=== PATIENT | male | born 1985 | race Caucasian/White ===

== ENCOUNTER 2017-04-28 23:31 | Emergency (ER) | payer OTHER ==
[~2017-04-28] VITALS: Ht 170.2 cm; Wt 52.6 kg
[~2017-04-28 23:31] MED LIST: (None)15 G1 EXT; ALBU90OI INH; ASPI325 PO; ASPI500 PO; CLON.5 PO; Cleocin HCl300 MG PO; ESCI10 PO; Epipen0.3 MG/0.3 IM; FLONASE ALLERG9.9 ML NS; GABA100 PO; HYDACE5 PO; HYDHCL25 PO; Keflex500 MG PO; METPRE4DP; NAPR500 PO; Naprosyn375 MG PO; Norco 5-325 Ta1 EACH PO; OMEP10ER PO; OMEP40CA12 PO; PENVK500 PO; Pepcid20 MG PO; Pepcid40 MG PO; Prednisone20 MG PO; Prednisone50 MG PO; RXHYDACE PO; SPACE CHAMBER1 EACH INH; TRIA80TC; Ultram50 MG PO; Veetids 500500 MG PO
[2017-04-28] MEDS ORDERED: PROP10 PO (23:44)
[2017-04-28] MEDS ORDERED: OXYC5 PO (23:44)
[2017-04-28 23:58] LABS: BASOPHILS ABSOLUTE AUTO 0.03 K/mm3 (0.00-0.23); BASOPHILS PERCENT AUTO 1 % (0-2); EOSINOPHILS ABSOLUTE AUTO 0.12 K/mm3 (0.00-0.68); EOSINOPHILS PERCENT AUTO 2 % (0-6); Hematocrit 49.2 % (37.0-53.0); Hemoglobin 16.8 g/dL (13.5-17.5); IMMATURE GRAN PERCENT AUTO 0 % (0-1); LYMPHOCYTES ABSOLUTE AUTO 1.86 K/mm3 (0.84-5.20); LYMPHOCYTES PERCENT AUTO 29 % (21-46); MONOCYTES ABSOLUTE AUTO 0.53 K/mm3 (0.16-1.47); MONOCYTES PERCENT AUTO 8 % (4-13); Mean Corpuscular HGB 29.5 pg (26.0-34.0); Mean Corpuscular HGB Conc 34.1 g/dL (31.5-36.5); Mean Corpuscular Volume 86 fL (80-100); Mean Platelet Volume 10.2 fL (9.1-12.4); NEUTROPHILS ABSOLUTE AUTO 3.89 K/mm3 (1.96-9.15); NEUTROPHILS PERCENT AUTO 61 % (41-73); Platelet Count 246 K/mm3 (150-400); RDW Coefficient Variation 11.7 % (11.7-14.2); RDW Standard Deviation 36.8 fL (35.1-46.3); White Blood Cell Count 6.43 K/mm3 (4.00-11.30)
[2017-04-29 00:18] LABS: Alanine Aminotransfer (ALT/SGP 21 U/L (12-78); Albumin, Blood 4.6 g/dL (3.4-5.0); Albumin/Globulin Ratio 1.2 (0.8-1.8); Alk Phos 76 U/L (50-136); Anion Gap 8 mmol/L (6-16); Aspartate Aminotrans (AST/SGOT 18 U/L (12-37); Bilirubin, Total 0.4 mg/dL (0.1-1.0); Blood Urea Nitrogen 13 mg/dL (8-24); Bun/Creatinine Ratio 21.5 (12.0-20.0); CO2, Blood 29 mmol/L (21-32); Calcium, Blood 9.2 mg/dL (8.5-10.1); Chloride, Blood 104 mmol/L (98-108); Creatinine, Blood 0.61 mg/dL (0.60-1.20); Glomerular Filtration Rate >60 (60-); Glucose, Blood 94 mg/dL (70-99); Potassium, Blood 3.7 mmol/L (3.5-5.5); Sodium, Blood 141 mmol/L (136-145); Total Protein, Blood 8.6 g/dL (6.4-8.2); Troponin I <0.015 ng/mL (0.000-0.040)
[2017-04-29] MEDS ORDERED: Guaifenesin-Co118 ML PO (01:05)
[2017-10-30] MEDS ORDERED: [UNRECOGNIZED DRUG - OTHER] PO (14:08)
[2017-10-30] MEDS ORDERED: EPIPEN 2-P0.3 MG/0.3 IM (14:08)
[2017-10-30] MEDS ORDERED: BOTOX COSMETIC100 U (14:08)
[2017-10-30] MEDS ORDERED: ALBU90OI INH (14:09)
[2017-10-30] MEDS ORDERED: CHOL10002 PO (14:09)
[2017-10-30] MEDS ORDERED: QVAR REDIHALE10.6 G1 INH (14:10)
[2017-10-30] MEDS ORDERED: MONT10T PO (14:11)
[2017-10-30] MEDS ORDERED: DULO30 PO (14:11)
== END 2017-04-29 01:26 | disposition home or self-care (01) ==
LOC: ER 23:31
PROVIDERS: Emergency Medicine
DX: J11.1 Influenza due to unidentified influenza virus with other respiratory manifestations (principal); F41.9 Anxiety disorder, unspecified; Z91.030 Bee allergy status; Z91.048 Other nonmedicinal substance allergy status; Z79.899 Other long term (current) drug therapy
CPT/HCPCS: 36415; 71046; 80053; 81000; 84484; 85025; 93005; 93010; 99283

== ENCOUNTER 2017-05-24 20:01 | Emergency (ER) | payer OTHER ==
[~2017-05-24] VITALS: Ht 170.2 cm; Wt 56.2 kg
[~2017-05-24 20:01] MED LIST changes: +Guaifenesin-Co118 ML PO; +OXYC5 PO; +PROP10 PO
[2017-05-24] MEDS ORDERED: QVAR INH (20:10)
[2017-05-24] MEDS ORDERED: Tamiflu75 MG PO (20:37)
[2017-10-30] MEDS ORDERED: BOTOX COSMETIC100 U (14:08)
[2017-10-30] MEDS ORDERED: [UNRECOGNIZED DRUG - OTHER] PO (14:08)
[2017-10-30] MEDS ORDERED: EPIPEN 2-P0.3 MG/0.3 IM (14:08)
[2017-10-30] MEDS ORDERED: CHOL10002 PO (14:09)
[2017-10-30] MEDS ORDERED: ALBU90OI INH (14:09)
[2017-10-30] MEDS ORDERED: QVAR REDIHALE10.6 G1 INH (14:10)
[2017-10-30] MEDS ORDERED: MONT10T PO (14:11)
[2017-10-30] MEDS ORDERED: DULO30 PO (14:11)
== END 2017-05-24 20:43 | disposition home or self-care (01) ==
LOC: ER 20:01
DX: J11.1 Influenza due to unidentified influenza virus with other respiratory manifestations (principal); J45.909 Unspecified asthma, uncomplicated; Z91.048 Other nonmedicinal substance allergy status; Z91.038 Other insect allergy status; Z79.899 Other long term (current) drug therapy
CPT/HCPCS: 99282

== ENCOUNTER → 2017-05-25 | Outpatient (CLI) | payer OTHER ==
[~2017-05-25] MED LIST changes: +BOTOX; +BOTOX COSMETIC100 U; +CHOL10002 PO; +DULO30 PO; +EPIPEN 2-P0.3 MG/0.3 IM; +METO10 PO; +MONT10T PO; +QVAR INH; +QVAR REDIHALE10.6 G1 INH; +Tamiflu75 MG PO; +Triamcinolone A15 GM TOP; +Zofran Odt4 MG PO; +[UNRECOGNIZED DRUG - OTHER] PO
[2017-05-25 15:02] LABS: BASOPHILS ABSOLUTE AUTO 0.04 K/mm3 (0.00-0.23); BASOPHILS PERCENT AUTO 1 % (0-2); EOSINOPHILS ABSOLUTE AUTO 0.02 K/mm3 (0.00-0.68); EOSINOPHILS PERCENT AUTO 1 % (0-6); Hematocrit 43.8 % (37.0-53.0); IMMATURE GRAN ABSOLUTE AUTO 0.02 K/mm3 (0.00-0.10); IMMATURE GRAN PERCENT AUTO 1 % (0-1); LYMPHOCYTES ABSOLUTE AUTO 0.27 K/mm3 (0.84-5.20); LYMPHOCYTES PERCENT AUTO 6 % (21-46); MONOCYTES ABSOLUTE AUTO 0.73 K/mm3 (0.16-1.47); MONOCYTES PERCENT AUTO 16 % (4-13); Mean Corpuscular HGB 30.2 pg (26.0-34.0); Mean Corpuscular HGB Conc 34.2 g/dL (31.5-36.5); Mean Corpuscular Volume 88 fL (80-100); Mean Platelet Volume 10.6 fL (9.1-12.4); NEUTROPHILS ABSOLUTE AUTO 3.36 K/mm3 (1.96-9.15); NEUTROPHILS PERCENT AUTO 76 % (41-73); Platelet Count 156 K/mm3 (150-400); RDW Coefficient Variation 12.1 % (11.7-14.2); RDW Standard Deviation 38.9 fL (35.1-46.3); Red Blood Cell Count 4.96 M/mm3 (4.30-5.90); White Blood Cell Count 4.44 K/mm3 (4.00-11.30)
[2017-05-25 15:08] LABS: Anion Gap 11 mmol/L (6-16); Blood Urea Nitrogen 10 mg/dL (8-24); Bun/Creatinine Ratio 12.5 (12.0-20.0); CO2, Blood 26 mmol/L (21-32); Calcium, Blood 9.2 mg/dL (8.5-10.1); Chloride, Blood 105 mmol/L (98-108); Glomerular Filtration Rate >60 (60-); Glucose, Blood 91 mg/dL (70-99); Potassium, Blood 3.3 mmol/L (3.5-5.5); Sodium, Blood 142 mmol/L (136-145)
== END ==
LOC: LAB EV 14:58
PROVIDERS: Physician Assistant Surgical
DX: R00.2 Palpitations (principal)
CPT/HCPCS: 80048; 85025

== ENCOUNTER 2017-05-26 22:53 | Emergency (ER) | payer OTHER ==
[~2017-05-26] VITALS: Ht 170.2 cm; Wt 56.2 kg
[~2017-05-26 22:53] MED LIST changes: -BOTOX; -BOTOX COSMETIC100 U; -CHOL10002 PO; -DULO30 PO; -EPIPEN 2-P0.3 MG/0.3 IM; -METO10 PO; -MONT10T PO; -QVAR REDIHALE10.6 G1 INH; -Triamcinolone A15 GM TOP; -Zofran Odt4 MG PO; -[UNRECOGNIZED DRUG - OTHER] PO
[2017-10-30] MEDS ORDERED: BOTOX COSMETIC100 U (14:08)
[2017-10-30] MEDS ORDERED: EPIPEN 2-P0.3 MG/0.3 IM (14:08)
[2017-10-30] MEDS ORDERED: [UNRECOGNIZED DRUG - OTHER] PO (14:08)
[2017-10-30] MEDS ORDERED: ALBU90OI INH (14:09)
[2017-10-30] MEDS ORDERED: CHOL10002 PO (14:09)
[2017-10-30] MEDS ORDERED: QVAR REDIHALE10.6 G1 INH (14:10)
[2017-10-30] MEDS ORDERED: DULO30 PO (14:11)
[2017-10-30] MEDS ORDERED: MONT10T PO (14:11)
== END 2017-05-27 02:30 | disposition home or self-care (01) ==
LOC: ER 22:53
DX: B34.9 Viral infection, unspecified (principal); Z91.038 Other insect allergy status; Z91.048 Other nonmedicinal substance allergy status
CPT/HCPCS: 87081; 87430; 93005; 93010; 99283

== ENCOUNTER → 2017-06-14 | Outpatient (CLI) | payer OTHER ==
[~2017-06-14] MED LIST changes: +BOTOX; +BOTOX COSMETIC100 U; +CHOL10002 PO; +DULO30 PO; +EPIPEN 2-P0.3 MG/0.3 IM; +METO10 PO; +MONT10T PO; +QVAR REDIHALE10.6 G1 INH; +Triamcinolone A15 GM TOP; +Zofran Odt4 MG PO; +[UNRECOGNIZED DRUG - OTHER] PO
[2017-06-14 19:26] LABS: Specimen Source URINE
[2017-06-14 19:34] LABS: BASOPHILS ABSOLUTE AUTO 0.05 K/mm3 (0.00-0.23); BASOPHILS PERCENT AUTO 1 % (0-2); EOSINOPHILS ABSOLUTE AUTO 0.09 K/mm3 (0.00-0.68); EOSINOPHILS PERCENT AUTO 2 % (0-6); Hematocrit 45.5 % (37.0-53.0); Hemoglobin 15.3 g/dL (13.5-17.5); IMMATURE GRAN ABSOLUTE AUTO 0.01 K/mm3 (0.00-0.10); IMMATURE GRAN PERCENT AUTO 0 % (0-1); LYMPHOCYTES PERCENT AUTO 26 % (21-46); MONOCYTES ABSOLUTE AUTO 0.53 K/mm3 (0.16-1.47); MONOCYTES PERCENT AUTO 9 % (4-13); Mean Corpuscular HGB 29.8 pg (26.0-34.0); Mean Corpuscular HGB Conc 33.6 g/dL (31.5-36.5); Mean Corpuscular Volume 89 fL (80-100); Mean Platelet Volume 10.9 fL (9.1-12.4); NEUTROPHILS ABSOLUTE AUTO 3.55 K/mm3 (1.96-9.15); NEUTROPHILS PERCENT AUTO 62 % (41-73); Platelet Count 238 K/mm3 (150-400); RDW Coefficient Variation 12.1 % (11.7-14.2); RDW Standard Deviation 39.1 fL (35.1-46.3); Red Blood Cell Count 5.13 M/mm3 (4.30-5.90); White Blood Cell Count 5.73 K/mm3 (4.00-11.30)
[2017-06-14 19:40] LABS: Anion Gap 7 mmol/L (6-16); Blood Urea Nitrogen 5 mg/dL (8-24); Bun/Creatinine Ratio 7.5 (12.0-20.0); CO2, Blood 31 mmol/L (21-32); Calcium, Blood 9.6 mg/dL (8.5-10.1); Chloride, Blood 104 mmol/L (98-108); Creatinine, Blood 0.67 mg/dL (0.60-1.20); Glomerular Filtration Rate >60 (60-); Glucose, Blood 88 mg/dL (70-99); Potassium, Blood 3.7 mmol/L (3.5-5.5); Sodium, Blood 142 mmol/L (136-145)
[2017-06-15 23:35] LABS: Source Urine
[2017-06-17 10:44] LABS: HCV Non Reactive (NR)
== END | disposition home or self-care (01) ==
LOC: LAB EV 19:24
PROVIDERS: Physician Assistant Surgical
DX: R53.83 Other fatigue (principal); Z72.51 High risk heterosexual behavior
CPT/HCPCS: 80048; 80074; 85025; 86592; 87389; 87491; 87591

== ENCOUNTER → 2017-07-04 | Outpatient (CLI) | payer OTHER ==
[~2017-07-04] MED LIST changes: -BOTOX; -BOTOX COSMETIC100 U; -CHOL10002 PO; -DULO30 PO; -EPIPEN 2-P0.3 MG/0.3 IM; -METO10 PO; -MONT10T PO; -QVAR REDIHALE10.6 G1 INH; -Triamcinolone A15 GM TOP; -Zofran Odt4 MG PO; -[UNRECOGNIZED DRUG - OTHER] PO
== END | disposition home or self-care (01) ==
LOC: LAB EV 16:42 → LAB SHORT 16:42
DX: R07.0 Pain in throat (principal)
CPT/HCPCS: 87070

== ENCOUNTER 2017-07-10 20:13 | Emergency (ER) | payer OTHER ==
[~2017-07-10] VITALS: Ht 170.2 cm; Wt 56.7 kg
[2017-07-10 20:41] LABS: BASOPHILS ABSOLUTE AUTO 0.04 K/mm3 (0.00-0.23); BASOPHILS PERCENT AUTO 1 % (0-2); EOSINOPHILS ABSOLUTE AUTO 0.11 K/mm3 (0.00-0.68); EOSINOPHILS PERCENT AUTO 2 % (0-6); Hematocrit 46.7 % (37.0-53.0); Hemoglobin 15.8 g/dL (13.5-17.5); IMMATURE GRAN PERCENT AUTO 0 % (0-1); LYMPHOCYTES ABSOLUTE AUTO 1.79 K/mm3 (0.84-5.20); LYMPHOCYTES PERCENT AUTO 28 % (21-46); MONOCYTES ABSOLUTE AUTO 0.51 K/mm3 (0.16-1.47); MONOCYTES PERCENT AUTO 8 % (4-13); Mean Corpuscular HGB 29.9 pg (26.0-34.0); Mean Corpuscular HGB Conc 33.8 g/dL (31.5-36.5); Mean Corpuscular Volume 88 fL (80-100); Mean Platelet Volume 10.2 fL (9.1-12.4); NEUTROPHILS ABSOLUTE AUTO 3.89 K/mm3 (1.96-9.15); NEUTROPHILS PERCENT AUTO 62 % (41-73); Platelet Count 244 K/mm3 (150-400); RDW Coefficient Variation 12.4 % (11.7-14.2); RDW Standard Deviation 39.8 fL (35.1-46.3); Red Blood Cell Count 5.29 M/mm3 (4.30-5.90); White Blood Cell Count 6.34 K/mm3 (4.00-11.30)
[2017-07-10 21:04] LABS: Alanine Aminotransfer (ALT/SGP 73 U/L (12-78); Albumin, Blood 4.9 g/dL (3.4-5.0); Albumin/Globulin Ratio 1.4 (0.8-1.8); Alk Phos 72 U/L (50-136); Anion Gap 6 mmol/L (6-16); Aspartate Aminotrans (AST/SGOT 36 U/L (12-37); Bilirubin, Total 0.4 mg/dL (0.1-1.0); Blood Urea Nitrogen 18 mg/dL (8-24); Bun/Creatinine Ratio 27.4 (12.0-20.0); CO2, Blood 26 mmol/L (21-32); Calcium, Blood 9.5 mg/dL (8.5-10.1); Chloride, Blood 106 mmol/L (98-108); Creatinine, Blood 0.66 mg/dL (0.60-1.20); Globulin, Blood 3.4 g/dL (2.2-4.0); Glomerular Filtration Rate >60 (60-); Glucose, Blood 110 mg/dL (70-99); Magnesium, Blood 1.8 mg/dL (1.6-2.4); Potassium, Blood 3.6 mmol/L (3.5-5.5); Sodium, Blood 138 mmol/L (136-145); Total Protein, Blood 8.3 g/dL (6.4-8.2); Troponin I <0.015 ng/mL (0.000-0.040)
== END 2017-07-10 22:46 | disposition home or self-care (01) ==
LOC: ER 20:13
PROVIDERS: Emergency Medicine
DX: R00.2 Palpitations (principal); Z91.030 Bee allergy status; Z88.6 Allergy status to analgesic agent; Z88.8 Allergy status to other drugs, medicaments and biological substances; Z79.899 Other long term (current) drug therapy; G43.909 Migraine, unspecified, not intractable, without status migrainosus
CPT/HCPCS: 36415; 71046; 80053; 83735; 84443; 84484; 85025; 93005; 93010; 99283; J7030

== ENCOUNTER 2017-11-25 22:25 | Emergency (ER) | payer OTHER ==
[~2017-11-25] VITALS: Ht 170.2 cm; Wt 53.5 kg
[~2017-11-25 22:25] MED LIST changes: +BOTOX COSMETIC100 U; +CHOL10002 PO; +DULO30 PO; +EPIPEN 2-P0.3 MG/0.3 IM; +MONT10T PO; +QVAR REDIHALE10.6 G1 INH; +[UNRECOGNIZED DRUG - OTHER] PO
[2017-11-26] MEDS ORDERED: Zofran Odt4 MG PO (01:29)
[2017-11-26] MEDS ORDERED: METO10 PO (01:29)
[2017-11-26] MEDS ORDERED: Triamcinolone A15 GM TOP (01:37)
== END 2017-11-26 01:53 | disposition home or self-care (01) ==
LOC: ER 22:25
DX: R11.2 Nausea with vomiting, unspecified (principal); L23.7 Allergic contact dermatitis due to plants, except food; Z91.030 Bee allergy status; Z88.6 Allergy status to analgesic agent; Z88.8 Allergy status to other drugs, medicaments and biological substances; Z79.899 Other long term (current) drug therapy; G43.909 Migraine, unspecified, not intractable, without status migrainosus; F41.9 Anxiety disorder, unspecified
CPT/HCPCS: 99283

== ENCOUNTER 2018-03-21 04:01 | Emergency (ER) | payer OTHER ==
[~2018-03-21] VITALS: Ht 175.3 cm; Wt 52.2 kg
[~2018-03-21 04:01] MED LIST changes: +METO10 PO; +Triamcinolone A15 GM TOP; +Zofran Odt4 MG PO
[2018-03-21] MEDS ORDERED: BOTOX (04:41)
[2018-03-21 05:38] LABS: Anion Gap 7 mmol/L (6-16); Blood Urea Nitrogen 12 mg/dL (8-24); Bun/Creatinine Ratio 17.8 (12.0-20.0); CO2, Blood 27 mmol/L (21-32); Calcium, Blood 8.5 mg/dL (8.5-10.1); Chloride, Blood 109 mmol/L (98-108); Creatinine, Blood 0.67 mg/dL (0.60-1.20); Glomerular Filtration Rate >60 (60-); Glucose, Blood 99 mg/dL (70-99); Sodium, Blood 143 mmol/L (136-145)
== END 2018-03-21 05:53 | disposition home or self-care (01) ==
LOC: ER 04:01
PROVIDERS: Emergency Medicine
DX: R00.2 Palpitations (principal); F41.9 Anxiety disorder, unspecified; Z88.8 Allergy status to other drugs, medicaments and biological substances; Z91.030 Bee allergy status; Z88.5 Allergy status to narcotic agent; Z79.899 Other long term (current) drug therapy
CPT/HCPCS: 80048; 93005; 93010; 99284-25

== ENCOUNTER 2018-05-29 09:18 | Emergency (ER) | payer OTHER | END 2018-05-29 09:40 | disposition left against medical advice (07) | LOC: ER 09:18 | DX: Z53.21 Procedure and treatment not carried out due to patient leaving prior to being seen by health care provider (principal) ==

== ENCOUNTER → 2018-05-29 | Outpatient (CLI) | payer OTHER ==
[~2018-05-29] MED LIST changes: +BOTOX; +CYAN500 PO; +QVAR REDIHALE10.6 G1 PO
[2018-05-29 11:09] LABS: Alanine Aminotransfer (ALT/SGP 21 U/L (12-78); Albumin, Blood 4.5 g/dL (3.4-5.0); Albumin/Globulin Ratio 1.5 (0.8-1.8); Alk Phos 67 U/L (40-126); Anion Gap 11 mmol/L (6-16); Aspartate Aminotrans (AST/SGOT 24 U/L (12-37); Bilirubin, Total 0.5 mg/dL (0.1-1.0); Blood Urea Nitrogen 14 mg/dL (8-24); Bun/Creatinine Ratio 18.4 (12.0-20.0); CO2, Blood 29 mmol/L (21-32); Calcium, Blood 8.8 mg/dL (8.5-10.1); Chloride, Blood 101 mmol/L (98-108); Creatinine, Blood 0.76 mg/dL (0.60-1.20); Glomerular Filtration Rate >60 (60-); Glucose, Blood 94 mg/dL (70-99); Potassium, Blood 3.4 mmol/L (3.5-5.5); Sodium, Blood 141 mmol/L (136-145); Total Protein, Blood 7.5 g/dL (6.4-8.2)
== END | disposition home or self-care (01) ==
LOC: LAB EV 10:48 → LAB SHORT 10:48
PROVIDERS: Physician Assistant
DX: R10.9 Unspecified abdominal pain (principal)
CPT/HCPCS: 80053

== ENCOUNTER → 2018-06-04 | Outpatient (CLI) | payer OTHER ==
[~2018-06-04] MED LIST changes: +ALBU90OI6 INH; +EPINEPHRIN0.15 MG/01 IJ
[2018-06-04 16:17] LABS: Source, Urine Clean Catch
[2018-06-04 17:45] LABS: White Blood Cells, Urine Not Seen /hpf (0-5)
[2018-06-04 17:46] LABS: Bacteria Rare /hpf; Red Blood Cells, Urine 0-2 /hpf (0-2); Squamous Epithelial Cells Not Seen /hpf (Few)
== END | disposition home or self-care (01) ==
LOC: LAB UCHC 16:14 → LAB SHORT 16:14
PROVIDERS: Nurse Practitioner Adult Health
DX: R31.21 Asymptomatic microscopic hematuria (principal)
CPT/HCPCS: 81015; 87086

== ENCOUNTER 2018-06-12 00:44 | Emergency (ER) | payer OTHER ==
[~2018-06-12] VITALS: Ht 170.2 cm; Wt 54.4 kg
[~2018-06-12 00:44] MED LIST changes: -ALBU90OI6 INH; -EPINEPHRIN0.15 MG/01 IJ
[2018-06-12] MEDS ORDERED: EPINEPHRIN0.15 MG/01 IJ (01:34)
[2018-06-12] MEDS ORDERED: ALBU90OI6 INH (01:34)
[2018-06-12 03:09] LABS: Influenza A Negative (NEGATIVE); Influenza B Negative (NEGATIVE)
== END 2018-06-12 04:30 | disposition home or self-care (01) ==
LOC: ER 00:44
PROVIDERS: Emergency Medicine
DX: J06.9 Acute upper respiratory infection, unspecified (principal)
CPT/HCPCS: 36415; 87804; 96361; 96374; 96375; 99283-25; J2405; J3010; J7030

== ENCOUNTER → 2020-12-14 | Outpatient (CLI) | payer OTHER ==
[~2020-12-14] MED LIST changes: +ALBU90OI6 INH; +EPINEPHRIN0.15 MG/01 IJ
[2020-12-16 20:06] LABS: Adenovirus F 40/41 Not Detected (NOT DETECT); Astrovirus Not Detected (NOT DETECT); Campylobacter Sp Not Detected (NOT DETECT); Cryptosporidium Not Detected (NOT DETECT); Cyclospora Cayetanensis Not Detected (NOT DETECT); E. Coli O157 Not Detected (NOT DETECT); Entamoeba Histolytica Not Detected (NOT DETECT); Enteroaggregative E. coli-EAEC Not Detected (NOT DETECT); Enteropathogenic E. coli-EPEC Detected (NOT DETECT); Enterotoxigenic E. coli-ETEC Not Detected (NOT DETECT); Giardia Lamblia Not Detected (NOT DETECT); Plesiomonas Shigelloides Not Detected (NOT DETECT); Salmonella Sp Not Detected (NOT DETECT); Shiga Toxin-prod E. coli-STEC Not Detected (NOT DETECT); Shigella/Enteroin E. coli-EIEC Not Detected (NOT DETECT); Vibrio Cholerae Not Detected (NOT DETECT); Vibrio Sp Not Detected (NOT DETECT); Yersinia Enterocolitica Not Detected (NOT DETECT)
[2020-12-16 20:07] LABS: Norovirus GI/GII Not Detected (NOT DETECT); Rotavirus A Not Detected (NOT DETECT); Sapovirus Not Detected (NOT DETECT)
== END | disposition home or self-care (01) ==
LOC: LAB 14:00 → LAB SHORT 14:00
PROVIDERS: Nurse Practitioner Family
DX: K21.00 Gastro-esophageal reflux disease with esophagitis, without bleeding (principal); R10.13 Epigastric pain; R11.0 Nausea
CPT/HCPCS: 0097U; 87338

== ENCOUNTER → 2021-12-07 | Outpatient (CLI) | payer OTHER ==
[2021-12-07 12:24] LABS: BASOPHILS ABSOLUTE AUTO 0.05 K/mm3 (0.00-0.23); BASOPHILS PERCENT AUTO 1 % (0-2); EOSINOPHILS ABSOLUTE AUTO 0.09 K/mm3 (0.00-0.68); EOSINOPHILS PERCENT AUTO 2 % (0-6); Hematocrit 47.8 % (37.0-53.0); Hemoglobin 16.8 g/dL (13.5-17.5); IMMATURE GRAN ABSOLUTE AUTO 0.01 K/mm3 (0.00-0.10); IMMATURE GRAN PERCENT AUTO 0 % (0-1); LYMPHOCYTES ABSOLUTE AUTO 1.35 K/mm3 (0.84-5.20); LYMPHOCYTES PERCENT AUTO 23 % (21-46); MONOCYTES ABSOLUTE AUTO 0.46 K/mm3 (0.16-1.47); MONOCYTES PERCENT AUTO 8 % (4-13); Mean Corpuscular HGB 30.4 pg (26.0-34.0); Mean Corpuscular HGB Conc 35.1 g/dL (31.5-36.5); Mean Corpuscular Volume 87 fL (80-100); Mean Platelet Volume 10.3 fL (9.1-12.4); NEUTROPHILS ABSOLUTE AUTO 3.95 K/mm3 (1.96-9.15); NEUTROPHILS PERCENT AUTO 67 % (41-73); Platelet Count 240 K/mm3 (150-400); RDW Coefficient Variation 11.8 % (11.7-14.2); RDW Standard Deviation 37.2 fL (35.1-46.3); Red Blood Cell Count 5.52 M/mm3 (4.30-5.90); White Blood Cell Count 5.91 K/mm3 (4.00-11.30)
[2021-12-07 12:35] LABS: Albumin, Blood 4.4 g/dL (3.4-5.0); Albumin/Globulin Ratio 1.3 (0.8-1.8); Bilirubin, Total 0.6 mg/dL (0.1-1.0); Bun/Creatinine Ratio 15.8 (12.0-20.0); Calcium, Blood 8.7 mg/dL (8.5-10.1); Creatinine, Blood 0.76 mg/dL (0.60-1.20); Globulin, Blood 3.3 g/dL (2.2-4.0); Potassium, Blood 3.5 mmol/L (3.5-5.5); Total Protein, Blood 7.7 g/dL (6.4-8.2)
== END | disposition home or self-care (01) ==
LOC: LAB SHORT 12:19
PROVIDERS: Physician Assistant
DX: R07.9 Chest pain, unspecified (principal)
CPT/HCPCS: 80053; 84484; 85025

== ENCOUNTER → 2021-12-11 | Outpatient (CLI) | payer OTHER ==
[2021-12-11 17:49] LABS: Adenovirus F 40/41 Not Detected (NOT DETECT); Astrovirus Not Detected (NOT DETECT); Campylobacter Sp Not Detected (NOT DETECT); Cryptosporidium Not Detected (NOT DETECT); Cyclospora Cayetanensis Not Detected (NOT DETECT); E. Coli O157 Not Detected (NOT DETECT); Entamoeba Histolytica Not Detected (NOT DETECT); Enteroaggregative E. coli-EAEC Not Detected (NOT DETECT); Enteropathogenic E. coli-EPEC Not Detected (NOT DETECT); Enterotoxigenic E. coli-ETEC Not Detected (NOT DETECT); Giardia Lamblia Not Detected (NOT DETECT); Norovirus GI/GII Not Detected (NOT DETECT); Plesiomonas Shigelloides Not Detected (NOT DETECT); Rotavirus A Not Detected (NOT DETECT); Salmonella Sp Not Detected (NOT DETECT); Shiga Toxin-prod E. coli-STEC Not Detected (NOT DETECT); Shigella/Enteroin E. coli-EIEC Not Detected (NOT DETECT); Vibrio Cholerae Not Detected (NOT DETECT); Vibrio Sp Not Detected (NOT DETECT); Yersinia Enterocolitica Not Detected (NOT DETECT)
[2021-12-11 17:50] LABS: Sapovirus Not Detected (NOT DETECT)
== END | disposition home or self-care (01) ==
LOC: LAB SHORT 13:34 → LAB 13:34
PROVIDERS: Nurse Practitioner Family
DX: R11.2 Nausea with vomiting, unspecified (principal)
CPT/HCPCS: 87507

== ENCOUNTER 2022-10-07 15:37 | Emergency (ER) | payer OTHER ==
[~2022-10-07] VITALS: Ht 170.2 cm; Wt 59.0 kg
[2022-10-07] MEDS ORDERED: ZOLOFT25 MG PO (15:51)
[2022-10-07] MEDS ORDERED: CELEXA10 MG PO (15:51)
[2022-10-07] MEDS ORDERED: Amitriptyline H10 MG PO (15:51)
[2022-10-07] MEDS ORDERED: DIAZ5 PO (16:34)
[2022-10-07] MEDS ORDERED: Omeprazole20 M1 PO (16:34)
[2022-10-07 16:40] VITALS: BP 118/82
== END 2022-10-07 16:44 | disposition home or self-care (01) ==
LOC: ER 15:37
DX: K29.70 Gastritis, unspecified, without bleeding (principal); F41.0 Panic disorder [episodic paroxysmal anxiety]; G43.909 Migraine, unspecified, not intractable, without status migrainosus; Z91.09 Other allergy status, other than to drugs and biological substances; Z88.8 Allergy status to other drugs, medicaments and biological substances
CPT/HCPCS: 99283; A9270

== ENCOUNTER 2022-10-13 21:36 | Emergency (ER) | payer OTHER ==
[~2022-10-13] VITALS: Ht 170.2 cm; Wt 59.0 kg
[~2022-10-13 21:36] MED LIST changes: +Amitriptyline H10 MG PO; +CELEXA10 MG PO; +DIAZ5 PO; +Omeprazole20 M1 PO; +ZOLOFT25 MG PO
[2022-10-13 21:41] VITALS: BP 142/91
[2022-10-13] MEDS ORDERED: HYDHCL25 PO (23:35)
== END 2022-10-13 23:49 | disposition home or self-care (01) ==
LOC: ER 21:36
DX: R51.9 Headache, unspecified (principal); F41.9 Anxiety disorder, unspecified; Z79.899 Other long term (current) drug therapy; Z88.8 Allergy status to other drugs, medicaments and biological substances
CPT/HCPCS: 96374; 96375; 99283-25; J1200; J1885; J2405; J7030

== ENCOUNTER 2023-03-21 15:35 | Emergency (ER) | payer OTHER ==
[~2023-03-21] VITALS: Ht 170.2 cm; Wt 15.9 kg
[2023-03-21 15:45] VITALS: BP 133/90
[2023-03-21 16:44] LABS: Influenza A, PCR NEGATIVE (NEGATIVE); Influenza B, PCR NEGATIVE (NEGATIVE); Resp Syncytial Virus, PCR NEGATIVE (NEGATIVE)
[2023-03-21 17:52] LABS: SARS-Cov-2 (COVID-19) PCR, MMC POSITIVE (NEGATIVE)
== END 2023-03-21 18:21 | disposition home or self-care (01) ==
LOC: ER 15:35
PROVIDERS: Physician Assistant
DX: U07.1 COVID-19 (principal); G43.909 Migraine, unspecified, not intractable, without status migrainosus; I34.1 Nonrheumatic mitral (valve) prolapse; Z79.899 Other long term (current) drug therapy; Z88.8 Allergy status to other drugs, medicaments and biological substances; Z91.030 Bee allergy status; Z91.048 Other nonmedicinal substance allergy status
CPT/HCPCS: 0241U; 86308; 87081; 87430; 96374; 99282; J1885

== ENCOUNTER 2023-05-09 01:22 | Emergency (ER) | payer OTHER ==
[~2023-05-09] VITALS: Ht 170.2 cm; Wt 61.2 kg
[2023-05-09] MEDS ORDERED: GABA400 PO (01:52)
[2023-05-09 02:14] LABS: BASOPHILS ABSOLUTE AUTO 0.01 K/mm3 (0.00-0.23); BASOPHILS PERCENT AUTO 0 % (0-2); EOSINOPHILS PERCENT AUTO 0 % (0-6); Hematocrit 47.1 % (37.0-53.0); Hemoglobin 16.3 g/dL (13.5-17.5); IMMATURE GRAN ABSOLUTE AUTO 0.03 K/mm3 (0.00-0.10); IMMATURE GRAN PERCENT AUTO 0 % (0-1); LYMPHOCYTES ABSOLUTE AUTO 0.53 K/mm3 (0.84-5.20); LYMPHOCYTES PERCENT AUTO 5 % (21-46); MONOCYTES ABSOLUTE AUTO 0.02 K/mm3 (0.16-1.47); MONOCYTES PERCENT AUTO 0 % (4-13); Mean Corpuscular HGB 29.7 pg (26.0-34.0); Mean Corpuscular HGB Conc 34.6 g/dL (31.5-36.5); Mean Corpuscular Volume 86 fL (80-100); Mean Platelet Volume 9.9 fL (9.1-12.4); NEUTROPHILS ABSOLUTE AUTO 11.25 K/mm3 (1.96-9.15); NEUTROPHILS PERCENT AUTO 95 % (41-73); Platelet Count 272 K/mm3 (150-400); RDW Coefficient Variation 11.8 % (11.7-14.2); Red Blood Cell Count 5.48 M/mm3 (4.30-5.90); White Blood Cell Count 11.84 K/mm3 (4.00-11.30)
[2023-05-09 02:34] LABS: Albumin, Blood 4.5 g/dL (3.4-5.0); Albumin/Globulin Ratio 1.3 (0.8-1.8); Bilirubin, Total 0.4 mg/dL (0.1-1.0); Calcium, Blood 9.3 mg/dL (8.5-10.1); Creatinine, Blood 0.58 mg/dL (0.60-1.20); Globulin, Blood 3.5 g/dL (2.2-4.0); Potassium, Blood 3.8 mmol/L (3.5-5.5)
[2023-05-09] MEDS ORDERED: NS 1,000 ML IV SCH (02:35)
[2023-05-09] MEDS ORDERED: Propranolol HCL 20 MG TAB PO ONE (02:40)
[2023-05-09 04:00] VITALS: BP 114/84
== END 2023-05-09 04:30 | disposition home or self-care (01) ==
LOC: ER 01:22
PROVIDERS: Emergency Medicine
DX: E86.0 Dehydration (principal); D72.829 Elevated white blood cell count, unspecified; I34.1 Nonrheumatic mitral (valve) prolapse; G43.909 Migraine, unspecified, not intractable, without status migrainosus; Z79.899 Other long term (current) drug therapy; Z88.8 Allergy status to other drugs, medicaments and biological substances; Z91.030 Bee allergy status; Z91.048 Other nonmedicinal substance allergy status
CPT/HCPCS: 71046; 80053; 83690; 84484; 85025; 93005; 93010; 96360; 99285-25; A9270; J7030

== ENCOUNTER → 2024-04-07 | Outpatient (CLI) | payer OTHER ==
[~2024-04-07] MED LIST changes: +GABA400 PO
== END ==
LOC: LAB SHORT 18:50 → LAB 18:50
DX: J02.9 Acute pharyngitis, unspecified (principal); R09.82 Postnasal drip
CPT/HCPCS: 87081